=== PATIENT | male | born 1990 | race African-American/Black ===

== ENCOUNTER 2017-02-01 15:45 | Emergency (ER) | payer OTHER ==
[~2017-02-01] VITALS: Ht 180.3 cm; Wt 88.9 kg
[~2017-02-01 15:45] MED LIST: BACTRIM DS TAB1 EACH PO; FLAGYL500 MG PO; IBUPROFEN 600600 M1 PO; LOPERAMIDE 2 MG2 MG PO; NOHOMEMEDICATIONS; NORCO 5-325 TA1 EACH PO; ZOFRAN ODT4 MG PO
[2017-02-01] MEDS ORDERED: MOBIC15 MG PO (16:48)
[2017-02-01 17:13] VITALS: BP 112/70
== END 2017-02-01 17:14 | disposition home or self-care (01) ==
LOC: ER 15:45
DX: S93.401A Sprain of unspecified ligament of right ankle, initial encounter (principal); X58.XXXA Exposure to other specified factors, initial encounter; Y93.67 Activity, basketball; Y92.89 Other specified places as the place of occurrence of the external cause; Y99.9 Unspecified external cause status